=== PATIENT | male | born 1995 | race African-American/Black ===

== ENCOUNTER 2019-07-24 21:09 | Emergency (ER) | payer OTHER ==
[2019-07-24] MEDS ORDERED: ONDANSETRON 4 MG/2 ML VIAL ONE ×2 (21:41→22:56)
[2019-07-24] MEDS ORDERED: MORPHINE 4 MG/ML SYR ONE (21:41)
[2019-07-24] MEDS ORDERED: KETAMINE HCL 500 MG/5 ML VIAL ONE (22:56)
[2019-07-24] MEDS ORDERED: NA CHLORIDE 0.9% 1,000 ML ONE (22:57)
--- NOTE | 2019-07-24 23:00 | RAD REPORT ---
EXAM DESCRIPTION: RAD - Wrist Left 3 View - 07/24/2019 10:20 pm CLINICAL HISTORY: Left wrist pain status post injury FINDINGS: Comminuted markedly displaced fracture involves the distal radius. No gross dislocation no kimberly . Fracture involves the ulnar styloid process.
--- NOTE | 2019-07-24 23:49 | EDPHYS ---
Physician Documentation [facility] Name: Franko John Age: 23 yrs Sex: Male : 1995 Arrival Date: 07/24/2019 Time: 21:10 Bed 26 Private MD: ED Physician Julian Martinez HPI: 07/23 21:24 This 23 yrs old Black Male presents to ER via Ambulatory with complaints of Arm Pain. pkl 21:24 Details of fall: The patient fell from an upright position, while running. Onset: The pkl symptoms/episode began/occurred just prior to arrival. Associated injuries: The patient sustained left wrist, abrasion, deformity, painful injury, right great toe, abrasion, painful injury. Historical: - Allergies: 21:13 No Known Allergies; ll1 - PMHx: 21:13 None; ll1 - PSHx: 21:13 None; ll1 - Immunization history:: Last tetanus immunization: up to date. - Social history:: Smoking status: Patient denies any tobacco usage or history of. Patient/guardian denies using alcohol, street drugs, tobacco products. ROS: 21:24 Eyes: Negative for injury, pain, redness, and discharge, ENT: Negative for injury, pkl pain, and discharge, Neck: Negative for injury, pain, and swelling, Cardiovascular: Negative for chest pain, palpitations, and edema, Respiratory: Negative for shortness of breath, cough, wheezing, and pleuritic chest pain, Abdomen/GI: Negative for abdominal pain, nausea, vomiting, diarrhea, and constipation, Back: Negative for injury and pain, : Negative for injury, bleeding, discharge, and swelling. 21:24 MS/extremity: Positive for abrasion, pain, of the left wrist and right great toe. 21:24 Neuro: Negative for altered mental status, loss of consciousness. Exam: 21:24 Head/Face: Normocephalic, atraumatic. Eyes: Pupils equal round and reactive to light, pkl extra-ocular motions intact. Lids and lashes normal. Conjunctiva and sclera are non-icteric and not injected. Cornea within normal limits. Periorbital areas with no swelling, redness, or edema. ENT: Nares patent. No nasal discharge, no septal abnormalities noted. Tympanic membranes are normal and external auditory canals are clear. Oropharynx with no redness, swelling, or masses, exudates, or evidence of obstruction, uvula midline. Mucous membranes moist. Neck: Trachea midline, no thyromegaly or masses palpated, and no cervical lymphadenopathy. Supple, full range of motion without nuchal rigidity, or vertebral point tenderness. No Meningismus. Chest/axilla: Normal chest wall appearance and motion. Nontender with no deformity. No lesions are appreciated. Cardiovascular: Regular rate and rhythm with a normal S1 and S2. No gallops, murmurs, or rubs. Normal PMI, no JVD. No pulse deficits. Respiratory: Lungs have equal breath sounds bilaterally, clear to auscultation and percussion. No rales, rhonchi or wheezes noted. No increased work of breathing, no retractions or nasal flaring. Abdomen/GI: Soft, non-tender, with normal bowel sounds. No distension or tympany. No guarding or rebound. No evidence of tenderness throughout. Back: No spinal tenderness. No costovertebral tenderness. Full range of motion. Neuro: Awake and alert, GCS 15, oriented to person, place, time, and situation. Cranial nerves II-XII grossly intact. Motor strength 5/5 in all extremities. Sensory grossly intact. Cerebellar exam normal. Normal gait. 21:24 Musculoskeletal/extremity: Extremities: grossly normal except: noted in the left wrist: abrasion, deformity, pain, noted in the right great toe: abrasion, pain. Vital Signs: 21:11 BP 147 / 89; Pulse 107; Resp 20; Temp 98.0; Pulse Ox 97% ; Pain 10/10; ll1 22:00 BP 129 / 88; Pulse 104; Resp 13; Pulse Ox 96% on R/A; vc 22:35 Weight 68.04 kg (R); Height 5 ft. 11 in. (180.34 cm) (R); ll1 23:00 BP 137 / 91; Pulse 94; Resp 16; Pulse Ox 96% on 2 lpm NC; vc 07/24 00:20 BP 153 / 95; Pulse 113; Resp 18; Pulse Ox 100% on R/A; vc 07/23 22:35 Body Mass Index 20.92 (68.04 kg, 180.34 cm) ll1 Procedures: 07/23 23:45 Splinting: Splint applied to left wrist using sugar tong splint. applied by myself. pk nurse. post reduction film - reveals improved alignment, Examined by me, post splint application: neurovascular intact, 2+ distal pulses palpable, brisk capillary refill noted, Patient tolerated well. MDM: 21:10 Patient medically screened. pkl 22:07 Data reviewed: vital signs, nurses notes, radiologic studies, CT scan. ED course: pk Patient does not want X' rays of the right foot done. Discussed X' ray result left wrist with patient.. 23:49 ED course: Closed reduction of fractures done under conscious sedation with IV pkl Ketamine. Post reduction X' rays showed improved alignment. 23:58 ED course: Patient advised to follow up with Orthopedist in 2 to 3 days.. pkl 07/23 21:23 Order name: Wrist Left (3 View) XRAY; Complete Time: 23:26 pkl 07/23 23:21 Order name: Wrist Left (2 View) XRAY rv 07/23 21:21 Order name: Saline Lock; Complete Time: 21:42 pkl 07/23 23:53 Order name: Sling; Complete Time: 00:08 pk Administered Medications: 21:40 Drug: Zofran (Ondansetron) 4 mg Route: IVP; Site: left wrist; vc 07/24 00:14 Follow up: Response: No adverse reaction rv 07/23 21:41 Drug: morphine 4 mg Route: IVP; Site: right wrist; vc 07/24 00:14 Follow up: Response: No adverse reaction; Marked relief of symptoms; RASS: Alert and rv Calm (0) 07/23 23:13 Drug: Ketamine 70 mg Route: IV; Rate: bolus; Site: right forearm; rv 07/24 00:13 Follow up: Response: No adverse reaction; IV Status: Completed infusion rv 00:11 Drug: KeFLEX 500 mg Route: PO; rv 00:14 Follow up: Response: No adverse reaction rv 00:14 Follow up: Response: Medication administered at discharge. rv 00:31 Drug: Zofran (Ondansetron) 4 mg Route: PO; vc 00:47 Follow up: Response: No adverse reaction; Nausea unchanged vc 00:45 Drug: Phenergan 25 mg Route: IM; Site: right deltoid; vc 01:02 Follow up: Response: No adverse reaction; Nausea is decreased vc Disposition: 07/24/19 23:48 Discharged to Home. Impression: Fractures distal left radius and ulnar styloid with displacement. - Condition is Stable. - Prescriptions for Tylenol- Codeine #3 300-30 mg Oral Tablet - take 1 tablet by ORAL route every 6 hours As needed; 20 tablet. Keflex 500 mg Oral Capsule - take 1 capsule by ORAL route every 6 hours for 7 days; 28 capsule. - Medication Reconciliation Form, Thank You Letter, Antibiotic Education, Prescription Opioid Use form. - Follow up: Private Physician; When: 2 - 3 days; Reason: Re-evaluation by your physician. - Problem is new. - Symptoms have improved. Signatures: Dispatcher [employer] [facility] Julian Martinez MD MD pkl Stephen Lloyd, RN RN rv Dionne Thorpe RN RN vc Lewis, Lynsay, RN RN ll1 Corrections: (The following items were deleted from the chart) 07/23 22:21 21:23 Foot Right 3 View+RAD.RAD.BRZ ordered. [facility] 07/24 01:02 07/23 23:48 07/24/2019 23:48 Discharged to Home. Impression: Fractures distal left vc radius and ulnar styloid with displacement. Condition is Stable. Forms are Medication Reconciliation Form, Thank You Letter, Antibiotic Education, Prescription Opioid Use. Follow up: Private Physician; When: 2 - 3 days; Reason: Re-evaluation by your physician. Problem is new. Symptoms have improved. pkl
--- NOTE | 2019-07-24 23:49 | ER ---
Nurse's Notes [facility] Name: Franko John Age: 23 yrs Sex: Male : 1995 Arrival Date: 07/24/2019 Time: 21:10 Bed 26 Private MD: Diagnosis: Fractures distal left radius and ulnar styloid with displacement Presentation: 07/23 21:11 Chief complaint: Patient states: Running fast and fell onto outstretched left arm. ll1 Obvious deformity to FA. Bleeding with abrasions to right foot 1st digit. Abrasion to palm of right hand. No LOC, no head injury. Coronavirus screen: Proceed with normal triage. Patient denies a cough. Patient denies shortness of breath or difficulty breathing. Patient denies measured and/or subjective temperature greater than 100.4F prior to today's visit. Patient denies travel on a cruise ship or to a country the [facility] currently lists as an affected area. Patient denies contact with known and/or suspected case of COVID-19. Ebola Screen: Patient denies travel to an Ebola-affected area in the 21 days before illness onset. Initial Sepsis Screen: Does the patient meet any 2 criteria? HR > 90 bpm. Risk Assessment: Do you want to hurt yourself or someone else? Patient reports no desire to harm self or others. Onset of symptoms was July 24, 2019. 21:11 Method Of Arrival: Ambulatory 1 21:11 Acuity: JETT 3 ll1 21:57 Initial Sepsis Screen: Does the patient have a suspected source of infection? No. vc Patient's initial sepsis screen is negative. Historical: - Allergies: 21:13 No Known Allergies; ll1 - PMHx: 21:13 None; ll1 - PSHx: 21:13 None; ll1 - Immunization history:: Last tetanus immunization: up to date. - Social history:: Smoking status: Patient denies any tobacco usage or history of. Patient/guardian denies using alcohol, street drugs, tobacco products. Screenin:56 Abuse screen: Denies threats or abuse. Nutritional screening: No deficits noted. vc Tuberculosis screening: No symptoms or risk factors identified. Fall Risk None identified. Assessment: 21:30 General: Appears in no apparent distress. uncomfortable, Behavior is calm, cooperative, vc appropriate for age. Pain: Complains of pain in left wrist Pain currently is 7 out of 10 on a pain scale. Pain: Complains of pain in right first toe Pain currently is 3 out of 10 on a pain scale. 21:30 Neuro: Level of Consciousness is awake, alert, obeys commands, Oriented to person, vc place, time. Cardiovascular: Capillary refill < 3 seconds Patient's skin is warm and dry. Cardiovascular: Pulses are all present. Respiratory: Airway is patent Respiratory effort is even, unlabored, Respiratory pattern is regular, symmetrical. GI: No signs and/or symptoms were reported involving the gastrointestinal system. : No signs and/or symptoms were reported regarding the genitourinary system. Derm: Skin temperature is warm. Musculoskeletal: unable to straighten left wrist. 07/24 00:30 Reassessment: Patient appears in no apparent distress at this time. Patient and/or vc family updated on plan of care and expected duration. Pain level reassessed. Patient is alert, oriented x 3, equal unlabored respirations, skin warm/dry/pink. Respiratory: Airway is patent Respiratory effort is even, unlabored, Respiratory pattern is regular, symmetrical. 00:44 Reassessment: Patient made it to the end of the hensley then started vomiting, MD boswell notified, patient returned to room, IM phenergan administer. 15 min shot time then patient will be discharged again. Vital Signs: 07/23 21:11 BP 147 / 89; Pulse 107; Resp 20; Temp 98.0; Pulse Ox 97% ; Pain 10/10; ll1 22:00 BP 129 / 88; Pulse 104; Resp 13; Pulse Ox 96% on R/A; vc 22:35 Weight 68.04 kg (R); Height 5 ft. 11 in. (180.34 cm) (R); ll1 23:00 BP 137 / 91; Pulse 94; Resp 16; Pulse Ox 96% on 2 lpm NC; vc 07/24 00:20 BP 153 / 95; Pulse 113; Resp 18; Pulse Ox 100% on R/A; vc 07/23 22:35 Body Mass Index 20.92 (68.04 kg, 180.34 cm) ll1 ED Course: 07/23 21:10 Patient arrived in ED. ll1 21:10 Julian Martinez MD is Attending Physician. pkl 21:13 Triage completed. ll1 21:14 Arm band placed on Patient placed in an exam room, on a stretcher. ll1 21:17 Dionne Thorpe, RN is Primary Nurse. vc 21:56 Patient has correct armband on for positive identification. Bed in low position. Side vc rails up X 1. athletic monitor on. Pulse ox on. 22:20 Wrist Left (3 View) XRAY In Process Unspecified. EDMS 23:50 Assist provider with reduction of left wrist using manipulation, Set up for procedure. vc Performed by Julian Martinez MD Immobilized with sling, Patient tolerated well. 23:52 Wrist Left (2 View) XRAY In Process Unspecified. EDMS 07/24 00:22 IV discontinued, intact, bleeding controlled, No redness/swelling at site. Pressure vc dressing applied. Administered Medications: 07/23 21:40 Drug: Zofran (Ondansetron) 4 mg Route: IVP; Site: left wrist; vc 07/24 00:14 Follow up: Response: No adverse reaction rv 07/23 21:41 Drug: morphine 4 mg Route: IVP; Site: right wrist; vc 07/24 00:14 Follow up: Response: No adverse reaction; Marked relief of symptoms; RASS: Alert and rv Calm (0) 07/23 23:13 Drug: Ketamine 70 mg Route: IV; Rate: bolus; Site: right forearm; rv 04 00:13 Follow up: Response: No adverse reaction; IV Status: Completed infusion rv 00:11 Drug: KeFLEX 500 mg Route: PO; rv 00:14 Follow up: Response: No adverse reaction rv 00:14 Follow up: Response: Medication administered at discharge. rv 00:31 Drug: Zofran (Ondansetron) 4 mg Route: PO; vc 00:47 Follow up: Response: No adverse reaction; Nausea unchanged vc 00:45 Drug: Phenergan 25 mg Route: IM; Site: right deltoid; vc 01:02 Follow up: Response: No adverse reaction; Nausea is decreased vc Outcome: 07/23 23:48 Discharge ordered by . alexia 07/24 00:54 Discharged to [employer] Enforcement vc Condition: May leave at 0100 if patient has not vomited. Discharge instructions given to patient, security guards Instructed on discharge instructions, follow up and referral plans. medication usage, wound care, Demonstrated understanding of instructions, follow-up care, medications, wound care. 01:02 Patient left the ED. vc Signatures: Dispatcher [employer] Julian Fermin MD MD pkl Vicente, Ronaldo RN RN rv Dionne Thorpe RN RN vc Lewis, Lynsay, RN RN ll1 Corrections: (The following items were deleted from the chart) 00:56 00:22 Condition: good vc vc 00:56 00:22 Discharged to [employer] Enforcement vc vc 00:56 00:22 Discharge instructions given to patient, security guards Instructed on discharge vc instructions, follow up and referral plans. medication usage, wound care, Demonstrated understanding of instructions, follow-up care, medications, wound care, vc 00:58 00:22 No provider procedures requiring assistance completed. vc vc
[2019-07-25] MEDS ORDERED: CEPHALEXIN 250 MG CAP ONE (00:07)
[2019-07-25] MEDS ORDERED: ONDANSETRON 4 MG (ODT) TAB ONE (00:35)
[2019-07-25] MEDS ORDERED: PROMETHAZINE INJ 25 MG/ML AMP ONE (00:46)
[2019-07-25 01:08] VITALS: TEMP 98
[2019-07-25 01:13] VITALS: BP 153/95; O2SAT 100
--- NOTE | 2019-07-25 08:37 | RAD REPORT ---
EXAM DESCRIPTION: RAD - Wrist Left 2 View - 07/24/2019 11:52 pm CLINICAL HISTORY: Radial fracture FINDINGS: A splint immobilizes previously described fractures of the radius and ulna
== END 2019-07-25 01:02 | disposition home or self-care (01) ==
LOC: ER 21:09
PROC: 0PSJXZZ Reposition Left Radius, External Approach (ICD-10-PCS; principal; 2019-07-25)
PROC: 0PSLXZZ Reposition Left Ulna, External Approach (ICD-10-PCS; 2019-07-25)
DX: S52.502A Unspecified fracture of the lower end of left radius, initial encounter for closed fracture (principal); S52.612A Displaced fracture of left ulna styloid process, initial encounter for closed fracture; W19.XXXA Unspecified fall, initial encounter; Y93.02 Activity, running; Y92.9 Unspecified place or not applicable
CPT/HCPCS: 73110; 73100; 25415; J2405 ×2; 96365; 96372; 96375; 99285; J2550; J7030